=== PATIENT | female | born 1935 | race African-American/Black ===

== ENCOUNTER 2017-11-11 00:29 | Inpatient (IN) | payer MEDICARE, OTHER ==
[2017-11-10 14:17] LABS: INR 0.98
[2017-11-11] VITALS (17 sets, daily range): BP systolic 124–153; BP diastolic 54–87
[~2017-11-11] VITALS: Ht 160 cm; Wt 97.1 kg
[~2017-11-11 00:29] MED LIST: ASCO-183 PO; FURO-45 PO; GLUC1TAB66 PO; HYDR-389 PO; MULT-27 PO; OMEP-125 PO
[2017-11-11] MEDS: NORMOSOL R SOLN(*) 1000 ML BAG 1,000 ML IV PRN ×2 (05:51→07:34)
[2017-11-11] MEDS ORDERED: FAMOTIDINE 20 MG TAB PO ONE (06:10)
[2017-11-11] MEDS ORDERED: ACETAMINOPHEN 500 MG TAB PO ONE (06:45)
[2017-11-11] MEDS ORDERED: TRANEXAMIC AC 1000 MG/10ML SDV 1,000 MG in DEXTROSE 5% 50 ML BAG 50 ML IV ONE (06:45)
[2017-11-11] MEDS ORDERED: LIDOCAINE/SOD BICARB 8.4% SYR ID ONE (06:45)
[2017-11-11] MEDS ORDERED: BACITRACIN 50000 UNIT/VIAL 100,000 UNIT in NS 0.9% 3000 ML IRRIGATION BAG 3,000 ML IR ONE (06:45)
[2017-11-11] MEDS ORDERED: PREGABALIN 75 MG CAPSULE PO ONE (06:45)
[2017-11-11] MEDS ORDERED: cloNIDine EPIDUR INJ 100MCG/ML 40 MCG, ROPIVACAINE 0.5% 20 ML VIAL 25 ML, EPINEPHrine H... INJ ONE (06:45)
[2017-11-11] MEDS ORDERED: ceFAZolin(*) 2GM/D5W 50ML 50 ML IVPB ONE (06:45)
[2017-11-11] MEDS ORDERED: MIDAZOLAM 2 MG/2 ML VIAL IVP PRN (06:45)
[2017-11-11] MEDS ORDERED: ONDANSETRON 4 MG/2 ML VIAL ONE (07:25)
[2017-11-11] MEDS ORDERED: DEXAMETHASONE SOD 4 MG/ML VIAL ONE (07:25)
[2017-11-11] MEDS ORDERED: fentaNYL CITR 100 MCG/2 ML AMP ONE (07:25)
[2017-11-11] MEDS ORDERED: LIDOCAINE MPF 1% 5 ML VIAL ONE (07:25)
[2017-11-11] MEDS ORDERED: PROPOFOL EMUL(*) 10MG/ML 20 ML 20 ML ONE (07:25)
[2017-11-11] MEDS ORDERED: KETAMINE HCL 200 MG/20 ML MDV ONE (07:26)
[2017-11-11] MEDS ORDERED: diphenhydrAMINE 50 MG/ML VIAL IVP PRN (10:10)
[2017-11-11] MEDS ORDERED: BISACODYL 10 MG SUPP PR PRN (10:10)
[2017-11-11] MEDS ORDERED: ONDANSETRON 4 MG/2 ML VIAL IVP PRN (10:10)
[2017-11-11] MEDS ORDERED: PROMETHAZINE 25 MG/ML 1 ML AMP IVP PRN (10:10)
[2017-11-11] MEDS ORDERED: diphenhydrAMINE 25 MG CAP PO PRN (10:10)
[2017-11-11] MEDS ORDERED: ZOLPIDEM TARTRATE 5 MG TAB PO PRN (10:10)
[2017-11-11] MEDS ORDERED: MAGNESIUM CITRATE 300 ML BTL PO PRN (10:10)
[2017-11-11] MEDS ORDERED: FLUSH 10 ML SYR IVP PRN (10:10)
[2017-11-11] MEDS ORDERED: LR 1000 ML BAG 1000 ML IV PRN (10:10)
[2017-11-11] MEDS ORDERED: VITA100T4 PO (12:02)
[2017-11-11] MEDS ORDERED: CYA1000 PO (12:03)
--- NOTE | 2017-11-11 12:15 | RADIOLOGY IMAGING REPORT ---
FACILITY: PATIENT NAME: Tiff Torres : 1935 MR: [id number] V: [id number] EXAM DATE: [id number] ORDERING PHYSICIAN: JUNIOR ROGERS TECHNOLOGIST: Location: [facility] Patient: Tiff Torres : 1935 Visit/Account:[id number] Date of Sevice: 11/11/2017 Technique: KNEE LIMITED RIGHT HISTORY: S/P TOTAL KNEE ARTHROPLASTY Comparison studies: None FINDINGS: There is no acute fracture. Present is a right knee arthroplasty. The alignment of the ar throplasty is maintained. Expected adjacent postoperative changes are noted. IMPRESSION: 1. Right knee arthroplasty without evidence of acute hardware complication. Report Dictated By: Jr Patel DO at 11/11/2017 12:11 PM Report E-Signed By: Jr Patel DO at 11/11/2017 12:12 PM WSN:[id number]
--- NOTE | 2017-11-11 13:40 | Hospitalist Consultation ---
History of Present Illness Requesting Physician Dr. Barone Reason for Consult Medical Management Chief Complaint s/p right knee replacement History of Present Illness She was admitted s/p right knee replacement. It is reported the surgery went well and without complication. History Problems: (1) Iron deficiency anemia Status: Chronic (2) Kinney esophagus Status: Chronic Home Meds Reported Medications Cyanocobalamin (Vitamin B-12) (VITAMIN B-12) 1,000 Mcg Tablet, 0 PO DAILY 11/11/17 Vitamin E Mixed (VITAMIN E) 100 Unit Tablet, 0 PO DAILY 11/11/17 Omeprazole (OMEPRAZOLE) 20 Mg Capsule.dr, 2 CAP PO BID, CAP 11/06/17 Glucosam/Chond/Hyalu/Cf Borate (Move Free Joint Health Tablet) 750 Mg-100 Mg- 1.65 Mg-108 Mg Tablet, 2 TAB PO DAILY 11/06/17 Furosemide (FUROSEMIDE) 20 Mg Tablet, 1 TAB PO DAILY, TAB 11/06/17 Mu-Vits-Min Th/Lycopene/Lutein (CENTRUM SILVER TABLET) 1 Each Tablet, 2 EACH PO DAILY 11/06/17 Ascorbic Acid (ASCORBIC ACID) 500 Mg Tablet, 500 MG PO DAILY 11/06/17 Acetaminophen/Hydrocodone (HYDROCODON-ACETAMINOPH 7.5-325) 1 Each Ea, 1 EACH PO BID Y for PAIN, EA 11/06/17 Allergies: Coded Allergies: aspirin (Verified Adverse Reaction, Intermediate, STOMACH ISSUES, 11/04/17) ibuprofen (Verified Adverse Reaction, Intermediate, STOMACH ISSUES, ) Patient History: FH: cancer MOTHER, BROTHER OR SISTER, Hx Smoking: Yes (2 1/2 PPD FOR 20 YRS QUIT 1984) Smoking Status: Former Smoker Caffeine Intake: Coffee Caffeine/Cups Per Day: 3 CUPS DAILY Hx Alcohol Use: Yes Alcohol Used: Wine Hx Substance Use Disorder: No Social Drug Use: Never History of IV Drug Use: No Review of Systems All Systems Reviewed/Normal: Yes, Except as Noted Exam Vital Signs Vital Signs Date Time Temp Pulse Resp B/P (MAP) Pulse Ox O2 Delivery O2 Flow Rate FiO2 11/11/17 12:15 51 149/61 (90) 100 Nasal Cannula 1.0 11/11/17 11:45 97.9 16 General Appearance: Alert, Awake, No Acute Distress, Afebrile Neuro: No Gross deficits Cardiovascular: Regular Rate and Rhythm Respiratory: No Respiratory Distress, Clear to Auscultation GI: Abd Soft and Non-Tender Psych: Alert & Oriented X3, Appropriate Mood & Affect Assessment and Plan Problems: (1) Status post right knee replacement Status: Acute Assessment & Plan: Followed by Dr. Barone. (2) Iron deficiency anemia Status: Chronic Assessment & Plan: She has history of blood transfusions and receives IV Iron as needed. Last iron infusion was August. She has been stable on her Hemoglobin and Hematocrit since May. Oral iron does not work well for the patient. We will follow her H&H. (3) Kinney esophagus Status: Chronic Assessment & Plan: She is on chronic treatment with Omeprazole. She will be treated with Protonix during admission. Venous Thromboembolism Antithrombotics Is Pt On Any Antithrombotics?: No Exam Sepsis Risk: No Definite Risk AROLDO ARTISP November 11, 2017 13:40
--- NOTE | 2017-11-11 15:01 | OPERATIVE REPORT 1 ---
EVENT DATE: November 11, 2017 SURGEON: Enoc Barone MD ANESTHESIOLOGIST: Jose Serra MD ANESTHESIA: General LMA. EPILEPSY PHYSICIAN: Neo Pappas PA-C PREOPERATIVE DIAGNOSIS Right knee osteoarthritis. POSTOPERATIVE DIAGNOSIS Right knee osteoarthritis. PROCEDURE PERFORMED Right total knee arthroplasty. FINDINGS The patient had a significant amount of arthritic changes associated with the knee. ESTIMATED BLOOD LOSS 200 mL COMPLICATIONS None. DRAINS None. TOURNIQUET TIME 17 minutes which was during cementation of the components. IMPLANTS USED DePuy size 5 posterior stabilized Attune knee with a size 5 tibial tray, a 5 x 6 mm rotating platform poly insert, and a 32 anatomic patella. SPECIMENS None. INDICATIONS AND HISTORY This patient is an 82-year-old female who presented to my clinic for evaluation of right knee pain going on for some time. She had had a left total knee replacement many years ago, but continued to have and irritation associated with the right side. When injections and conservative management were not working anymore, she wanted to go ahead with a total knee arthroplasty today, November 11, 2017. The risks and benefits were discussed with the patient, and informed consent was obtained at the last clinic visit, and we went over the risks and benefits associated. However, I could not guarantee relief associated with it, and she understood. DESCRIPTION OF PROCEDURE As the patient was brought in the operating room, she and the procedure were both verified. She was placed supine on the operating table and induced and intubated by Anesthesia. The right lower extremity was then prepped and draped in the usual fashion. A timeout was observed verifying the correct patient and procedure. The standard incision was then made over the anterior aspect of the knee and right down for a medial patellar approach. I was able to cauterize the bleeders throughout the skin and subcutaneous tissue, and then I was able to get to the medial side. I then performed the medial patellar approach without any major difficulty, cauterized the bleeders once again. I then was able to peel a little bit of the CL back to expose the medial side very well. I then also removed the patellar fat pad without any difficulty and the anterior aspect of the meniscus. I then high flexed the knee and was able to remove the rest of the ACL and PCL complex and then was able to drill the central canal for the Attune guide. Using the Attune system set on 5 and 9, I was then able to cut the distal aspect of the femur and then was able to measure it to right in between a 5 and 6. We initially put the 6 on. That looked like it was not going to cut enough anterior, and so then went down a size to the 5. Once I did this, I then was able to make all four cuts without any difficulty including the chamfer cuts. I removed all the osteophytes off the side and then also put in the notch- cutting block where I was able to cut the notch without any major difficulty. I then turned attention to the tibia where I was able to clean off the rest of the menisci and then was able to drill a central canal through the central portion of the tibia on this side. This was then followed by putting on the tibial cutting jig without any issues, making sure to cut off 2 mm of the low side. I then was able to cut the proximal tibia without any major difficulty. This was then followed by removal of the rest of the posterior aspects of the menisci which had extruded to the back and also some large posterior osteophytes associated with this. Once I did this, I was then able to size the tibia to a size 5 also, and so therefore we then put in the standard trial for the 5 associated with this and cut the standard notch block using the alignment guide throughout the entire process. I then was able to trial a 5 mm poly first and then went up to a 6 mm poly which had a little bit better stability and still had achieved full extension, and so therefore, these were the final components chosen. I then everted the patella, cut 9.5 mm off the patella, and then sized it to a 32 anatomic patella and drilled the small holes associated with this. I then inflated the tourniquet, put in the pain cocktail throughout the entire knee. I then followed this by removing all the old components and then cementing in the tibia side first, followed by the femoral side and then followed by the patella. We allowed the cement to harden as the tourniquet was up and then let the tourniquet down. I was then able to close the medial parapatellar approach with #2 Stratafix followed by 2-0 Vicryl in the subcutaneous fat and subcutaneous 2-0 Stratafix and a subcuticular 4-0 Monocryl in the skin. The wound was then dressed with a bio-occlusive dressing. It was wrapped, and then the patient was awakened, extubated, and transferred to PACU in stable condition from where she will be admitted. DELVIN
[2017-11-11] MEDS: ceFAZolin(*) 2GM/D5W 50ML 50 ML IVPB SCH (16:31)
[2017-11-11] MEDS: PANTOPRAZOLE SOD 40 MG TABEC PO SCH (20:27)
[2017-11-12] MEDS: ceFAZolin(*) 2GM/D5W 50ML 50 ML IVPB SCH ×2 (00:19→08:34)
[2017-11-12 02:59] VITALS: BP 134/56
[2017-11-12 03:26] VITALS: BP 155/82
[2017-11-12] MEDS: HYDROmorphone HCL 2 MG/ML SDV IVP PRN ×3 (05:52→17:15)
[2017-11-12 08:00] VITALS: BP 146/75
[2017-11-12] MEDS ORDERED: DIAZEPAM 2 MG TAB PO ONE (08:45)
[2017-11-12] MEDS: PANTOPRAZOLE SOD 40 MG TABEC PO SCH ×2 (08:57→20:48)
[2017-11-12] MEDS: ASPIRIN 325 MG ENTERIC COATED PO SCH (08:57)
--- NOTE | 2017-11-12 08:58 | Hospitalist Progress Note ---
Subjective Progress Notes Subjective She has some complaints of muscle spasms this morning. She also did have a tachycardic event overnight which was asymptomatic. Patient Complains of: Cardiovascular: No: Chest Pain Respiratory: No: Shortness of Breath Physical Exam Vital Signs Date Time Temp Pulse Resp B/P (MAP) Pulse Ox O2 Delivery O2 Flow Rate FiO2 11/12/17 08:00 98.4 73 16 146/75 (98) 97 Nasal Cannula 0.5 General Appearance: Alert, Awake, No Acute Distress, Afebrile Neuro: No Gross deficits Cardiovascular: Regular Rate and Rhythm Respiratory: No Respiratory Distress, Clear to Auscultation GI: Soft and Non-Tender Psych: Alert & Oriented X3, Appropriate Mood & Affect Result Diagram: 11/12/1752411/12/17524 Assessment and Plan Problems: (1) Status post right knee replacement Status: Acute Assessment & Plan: Followed by Dr. Barone. She will take Aspirin 325 mg daily for DVT prophylaxis. (2) Iron deficiency anemia Status: Chronic Assessment & Plan: She has history of blood transfusions and receives IV Iron as needed. Last iron infusion was August. She has been stable on her Hemoglobin and Hematocrit since May. Hgb decreased today to 8.9 and Hct 27. We will continue to follow her H&H. (3) Kinney esophagus Status: Chronic Assessment & Plan: She is on chronic treatment with Omeprazole. She will be treated with Protonix during admission. Exam Sepsis Risk: No Definite Risk AROLDO ARTIS November 12, 2017 08:58
[2017-11-12] MEDS ORDERED: LIDOCAINE/SOD BICARB 8.4% SYR ID ONE (09:15)
[2017-11-12 11:33] VITALS: BP 132/51
[2017-11-12 12:21] VITALS: Ht 160 cm; Wt 97.1 kg
[2017-11-12 14:37] VITALS: BP 126/47
[2017-11-12 19:01] VITALS: BP 116/51
[2017-11-13 01:25] VITALS: BP 125/53
[2017-11-13 04:52] VITALS: BP 140/53
[2017-11-13 07:27] VITALS: BP 137/50
--- NOTE | 2017-11-13 08:57 | Hospitalist Progress Note ---
Subjective Progress Notes Subjective She has no concerns this morning. Patient Complains of: Cardiovascular: No: Chest Pain Respiratory: No: Shortness of Breath Physical Exam Vital Signs Date Time Temp Pulse Resp B/P (MAP) Pulse Ox O2 Delivery O2 Flow Rate FiO2 11/13/17 07:27 98.9 69 14 137/50 (79) 95 Nasal Cannula 1.0 Intake and Output 11/14/17 07:00 # Voids 1 General Appearance: Alert, Awake, No Acute Distress Neuro: No Gross deficits Cardiovascular: Regular Rate and Rhythm Respiratory: No Respiratory Distress, Other (diminished breath sounds) GI: Soft and Non-Tender Psych: Alert & Oriented X3, Appropriate Mood & Affect Result Diagram: 11/13/17 0531 11/12/17 05 Assessment and Plan Problems: (1) Status post right knee replacement Status: Acute Assessment & Plan: Followed by Dr. Barone. She will take Aspirin 325 mg daily for DVT prophylaxis. Encouraged IS more. She has diminished breath sounds. We will check CBC this morning. (2) Iron deficiency anemia Status: Chronic Assessment & Plan: She has history of blood transfusions and receives IV Iron as needed. Last iron infusion was August. She has been stable on her Hemoglobin and Hematocrit since May. Hgb stable at 9.0 this morning. We will continue to follow her H&H. (3) Kinney esophagus Status: Chronic Assessment & Plan: She is on chronic treatment with Omeprazole. She will be treated with Protonix during admission. Exam Sepsis Risk: No Definite Risk AROLDO ARTIS November 13, 2017 08:57
[2017-11-13] MEDS: PANTOPRAZOLE SOD 40 MG TABEC PO SCH ×2 (09:10→21:13)
[2017-11-13] MEDS: MAGNESIUM HYDROXIDE* 30ML UDCP PO PRN (09:10)
[2017-11-13] MEDS: ASPIRIN 325 MG ENTERIC COATED PO SCH (09:10)
[2017-11-13 09:14] LABS: PLATELET COUNT, AUTOMATED 274 K/uL (150-450)
[2017-11-13] MEDS: HYDROmorphone HCL 2 MG/ML SDV IVP PRN (11:05)
[2017-11-13 13:51] VITALS: BP 116/56
[2017-11-13 16:56] VITALS: BP 129/64
[2017-11-13 19:04] VITALS: BP 123/57
[2017-11-14 04:35] VITALS: BP 153/61
[2017-11-14] MEDS ORDERED: PER (07:04)
[2017-11-14 07:54] VITALS: BP 123/58
--- NOTE | 2017-11-14 08:11 | Hospitalist Progress Note ---
Subjective Progress Notes Subjective No cp/sob. She is at her baseline dyspnea, which she gets SOB with exertion and difficulty finishing sentences. Physical Exam Vital Signs Date Time Temp Pulse Resp B/P (MAP) Pulse Ox O2 Delivery O2 Flow Rate FiO2 11/14/17 07:54 98.1 88 18 123/58 (79) 93 Room Air 11/14/17 04:35 1.5 General Appearance: Alert, Awake, No Acute Distress Result Diagram: 11/14/17 0515 11/12/17 0525 Assessment and Plan Problems: (1) Status post right knee replacement Status: Acute Assessment & Plan: Followed by Dr. Barone. She will take Aspirin 325 mg daily for DVT prophylaxis. (2) Iron deficiency anemia Status: Chronic Assessment & Plan: She has history of blood transfusions and receives IV Iron as needed. Last iron infusion was August. She has been stable on her Hemoglobin and Hematocrit since May. Hgb stable at 8.3 this morning. Hgb in 2 days. (3) Kinney esophagus Status: Chronic Assessment & Plan: She is on chronic treatment with Omeprazole. She was treated with Protonix during the admission. Exam Sepsis Risk: No Definite Risk ANTONIETTA CHA MD Nov 14, 2017 08:11
[2017-11-14] MEDS: PANTOPRAZOLE SOD 40 MG TABEC PO SCH (08:58)
[2017-11-14] MEDS: MAGNESIUM HYDROXIDE* 30ML UDCP PO PRN (08:58)
[2017-11-14] MEDS: ASPIRIN 325 MG ENTERIC COATED PO SCH (08:58)
[2017-11-14 11:38] VITALS: BP 119/63
== END 2017-11-14 12:20 | disposition home or self-care (01) | DRG 470 ==
LOC: OR 00:29 → MED 11:45
PROVIDERS: ADMIT Orthopaedic Surgery; ATTEND Orthopaedic Surgery
PROC: 0SRC0J9 Replacement of Right Knee Joint with Synthetic Substitute, Cemented, Open Approach (ICD-10-PCS; principal; 2017-11-11 08:02)
DX: M17.11 Unilateral primary osteoarthritis, right knee (principal); D50.0 Iron deficiency anemia secondary to blood loss (chronic); K22.70 Barrett's esophagus without dysplasia; K21.9 Gastro-esophageal reflux disease without esophagitis; R06.00 Dyspnea, unspecified; M62.838 Other muscle spasm; Z86.718 Personal history of other venous thrombosis and embolism; Z87.891 Personal history of nicotine dependence; Z88.6 Allergy status to analgesic agent; Z96.652 Presence of left artificial knee joint; R00.0 Tachycardia, unspecified
CPT/HCPCS: 36415; 82310; 82374; 82435; 82565; 82947; 83735; 84132; 84295; 84484; 84520; 85014; 85018; 85025; 85610; 86850; 86900; 86901; 86920; 97161; C1713; C1776; J0171; J0690; J0735; J1100; J1170; J1885; J2001; J2250; J2405; J2704; J2795; J3010; J3490; J7050; J7060; J7120